=== PATIENT | male | born 1945 | race Caucasian/White ===

== ENCOUNTER → 2017-12-02 | Outpatient (CLI) | payer MEDICARE ==
[~2017-12-02] MED LIST: ASPIRIN81 MG PO; JANUVIA100 MG PO; MULTAG PO; ONGLYZA5 MG PO; VITAMIN B; VITAMIN B6100 MG PO; Z ACIDOPHILUS; Z.0.ASPIR 8181 MG PO; Z.0.CENTRUM SILVER1 PO; Z.0.CRESTOR40 MG PO; Z.0.GLIPIZIDE5 MG PO; Z.0.LOVAZA1 GM PO; Z.0.METOPROLOL SUCC2 PO; Z.0.PANTOPRAZOLE SO4 PO; Z.0.PLAVIX75 MG PO; Z.0.TRILIPIX135 MG PO; Z.0.VITAMIN C500 M1 PO; Z.1.ISOSORBIDE MONO6 PO; [UNRECOGNIZED DRUG - OTHER] PO; [UNRECOGNIZED DRUG - OTHER] PO
--- NOTE | 2017-12-02 14:12 | Diagnostic Imaging Report ---
MRI of the right shoulder without contrast. History: Shoulder pain. Decreased range of motion. Fall. Comparison: None Technique: Coronal PD FS, sagital PD FS, and axial PD and PD FS. Findings: Rotator cuff: There is rotator cuff tendinosis with a small full-thickness tear involving the anterior fibers of the supraspinatus tendon at the humeral insertion site. This is best seen on sagittal series 5 image 8 and coronal series 3 image 9 and 10. There is minimal retraction of the torn fibers and mild supraspinatus muscle atrophy. Additionally, there is infraspinatus and subscapularis tendinosis. The teres minor tendon is intact. Osseous acromion complex: There is a type II acromion with mild lateral downsloping. There is moderate degenerative arthrosis at the acromioclavicular joint with undersurface spurring and narrowing of the supraspinatus tendon outlet. There is mild subacromial/subdeltoid bursitis. Glenohumeral joint: There is degeneration and fraying of the labrum. The humeral head is well-seated in the glenoid fossa. The articular cartilage surfaces are slightly thin. Biceps tendon: There is intra-articular biceps tendinosis with fraying at the biceps anchor. Other findings: Negative for muscle innervation or osseous fracture. There is a small amount of fluid and mild synovitis in the subcoracoid space with a 2 mm loose body best seen on series 2 image 10. Impression: Rotator cuff tendinosis with small full-thickness tear involving the anterior fibers of the supraspinatus tendon at the humeral insertion site. There is minimal retraction of the torn fibers and mild supraspinatus muscle atrophy. Moderate degenerative arthrosis at the acromioclavicular joint with narrowing of the supraspinatus tendon outlet. Intra-articular biceps tendinosis with fraying of the biceps anchor. Signed by: Dr. Christophe Diamond M.D. on 12/02/2017 2:09 PM
== END ==
LOC: MRI 10:23
PROVIDERS: ATTEND Family Medicine
DX: M25.511 Pain in right shoulder (principal)

== ENCOUNTER → 2020-10-26 | Outpatient (CLI) | payer MEDICARE | LOC: MRI 12:19 | PROVIDERS: ATTEND Family Medicine | DX: S46.012A Strain of muscle(s) and tendon(s) of the rotator cuff of left shoulder, initial encounter (principal) ==

== ENCOUNTER → 2021-03-18 | Day surgery (SDC) | payer MEDICARE ==
[2021-03-14 09:31] LABS: BASOPHILS # (AUTO) 0.1 (0.0-0.1); EOSINOPHILS # (AUTO) 0.3 (0.0-0.4); EOSINOPHILS % 3.7 % (0.0-6.0); HEMATOCRIT 46.9 % (38.2-49.6); HEMOGLOBIN 15.2 g/dL (14.0-18.0); LYMPHOCYTES # (AUTO) 1.7 (1.0-3.2); LYMPHOCYTES % 21.3 % (18.0-39.1); MEAN CORPUSCULAR HEMOGLOBIN 30.4 pg (28-32); MEAN CORPUSCULAR HGB CONC 32.4 g/dL (31-35); MEAN CORPUSCULAR VOLUME 93.8 fL (81-99); MONOCYTES # (AUTO) 0.6 (0.2-0.8); MONOCYTES % 8.3 % (4.4-11.3); NEUTROPHILS # (AUTO) 5.1 (2.1-6.9); NEUTROPHILS % 65.2 % (38.7-80.0); PLATELET COUNT 156 x10e3/uL (140-360); RED CELL DISTRIBUTION WIDTH 13.6 % (11.7-14.4)
[2021-03-14 09:51] LABS: ALBUMIN 3.8 g/dL (3.5-5.0); ALBUMIN/GLOBULIN RATIO 1.2 (0.8-2.0); CALCIUM 9.2 mg/dL (8.4-10.2); CREATININE, SERUM 1.05 mg/dL (0.72-1.25)
[~2021-03-18] MED LIST changes: +BUPIVACAINE 0.25% 30ML SDV ONE; +CENTRUM SILVER1 EAC3 PO; +FENTANYL CITRATE/PF 100MCG/2 ML INJ ONE; +FLOMAX0.4 MG PO; +JARDIANCE25 MG PO; +LIDOCAINE 2%/ EPINEPHRINE 20ML MDV ONE; +MIDAZOLAM HCL 2 MG/2 ML VIAL ONE; +OMEGA 3 1,0001 EACH PO; +PRESERVISION A1 EAC3 PO
[2021-03-18 11:00] VITALS: BP 109/70
== END | disposition home or self-care (01) ==
LOC: OR 06:22
PROVIDERS: ATTEND Surgery
DX: T85.618A Breakdown (mechanical) of other specified internal prosthetic devices, implants and grafts, initial encounter (principal); C18.9 Malignant neoplasm of colon, unspecified; E11.9 Type 2 diabetes mellitus without complications; I10 Essential (primary) hypertension; I25.10 Atherosclerotic heart disease of native coronary artery without angina pectoris; R00.1 Bradycardia, unspecified; I45.10 Unspecified right bundle-branch block; Y83.8 Other surgical procedures as the cause of abnormal reaction of the patient, or of later complication, without mention of misadventure at the time of the procedure; Z01.810 Encounter for preprocedural cardiovascular examination; Z01.812 Encounter for preprocedural laboratory examination; Z01.818 Encounter for other preprocedural examination; Z20.822 Contact with and (suspected) exposure to COVID-19; Z79.84 Long term (current) use of oral hypoglycemic drugs; Z79.82 Long term (current) use of aspirin; Z79.899 Other long term (current) drug therapy; Z98.61 Coronary angioplasty status
CPT/HCPCS: 36415 ×2; 36590; 71046; 80053; 82948; 85025; 88300; 93005; J2001; J2250; J3010; U0002

== ENCOUNTER → 2022-01-08 | Day surgery (SDC) | payer MEDICARE ==
[2021-12-23 10:52] LABS: BASOPHILS # (AUTO) 0.1 (0.0-0.1); BASOPHILS % 0.7 % (0.0-1.0); EOSINOPHILS # (AUTO) 0.1 (0.0-0.4); EOSINOPHILS % 1.6 % (0.0-6.0); HEMATOCRIT 50.2 % (38.2-49.6); HEMOGLOBIN 16.3 g/dL (14.0-18.0); LYMPHOCYTES # (AUTO) 1.8 (1.0-3.2); LYMPHOCYTES % 21.4 % (18.0-39.1); MEAN CORPUSCULAR HEMOGLOBIN 31.2 pg (28-32); MEAN CORPUSCULAR HGB CONC 32.5 g/dL (31-35); MONOCYTES # (AUTO) 0.6 (0.2-0.8); MONOCYTES % 7.7 % (4.4-11.3); NEUTROPHILS # (AUTO) 5.6 (2.1-6.9); NEUTROPHILS % 68.2 % (38.7-80.0); PLATELET COUNT 140 x10e3/uL (140-360); RED BLOOD COUNT 5.23 x10e6/uL (4.3-5.7); RED CELL DISTRIBUTION WIDTH 12.5 % (11.7-14.4)
[~2022-01-08] MED LIST changes: +ALIGN4 MG PO; -BUPIVACAINE 0.25% 30ML SDV ONE; +CBD GUMMIES PO; -FENTANYL CITRATE/PF 100MCG/2 ML INJ ONE; +FISH OIL 1,0001 EAC7 PO; +GLIMEPIRIDE2 MG PO; +HYOSCYAMINE SULFATE 0.5 MG/ML INJ ONE; -LIDOCAINE 2%/ EPINEPHRINE 20ML MDV ONE; +LIDOCAINE HCL 2% LOCAL INJ 5 ML SDV VIAL INJ ONE; -MIDAZOLAM HCL 2 MG/2 ML VIAL ONE; +PROPOFOL IV EMULSION 10 MG/ML 20 ML VIAL ONE
[2022-01-08 14:33] VITALS: BP 115/77
== END | disposition home or self-care (01) ==
LOC: OR 09:55
PROVIDERS: ATTEND Internal Medicine Gastroenterology
DX: K59.09 Other constipation (principal); Z85.038 Personal history of other malignant neoplasm of large intestine; D12.3 Benign neoplasm of transverse colon; D12.5 Benign neoplasm of sigmoid colon; K31.7 Polyp of stomach and duodenum; K29.50 Unspecified chronic gastritis without bleeding; K20.90 Esophagitis, unspecified without bleeding; K44.9 Diaphragmatic hernia without obstruction or gangrene; K31.89 Other diseases of stomach and duodenum; K21.9 Gastro-esophageal reflux disease without esophagitis; Z98.0 Intestinal bypass and anastomosis status; K57.30 Diverticulosis of large intestine without perforation or abscess without bleeding; K64.8 Other hemorrhoids; Z71.3 Dietary counseling and surveillance; G47.33 Obstructive sleep apnea (adult) (pediatric); I25.10 Atherosclerotic heart disease of native coronary artery without angina pectoris; I10 Essential (primary) hypertension; E11.9 Type 2 diabetes mellitus without complications; E78.5 Hyperlipidemia, unspecified; R00.1 Bradycardia, unspecified; Z88.7 Allergy status to serum and vaccine; Z01.810 Encounter for preprocedural cardiovascular examination; Z01.812 Encounter for preprocedural laboratory examination; Z79.84 Long term (current) use of oral hypoglycemic drugs; Z79.82 Long term (current) use of aspirin; Z79.899 Other long term (current) drug therapy; Z68.30 Body mass index [BMI] 30.0-30.9, adult; Z87.891 Personal history of nicotine dependence
CPT/HCPCS: 36415 ×2; 43239; 45385; 82948; 85025; 93005; C9113; J1980; J2001; J2704; 45378

== ENCOUNTER → 2024-04-14 | Outpatient (REF) | payer MEDICARE ==
[~2024-04-14] MED LIST changes: +ACTOS15 MG PO; +FAMOTIDINE20 MG PO; -HYOSCYAMINE SULFATE 0.5 MG/ML INJ ONE; +KETOROLAC TROME10 MG PO; -LIDOCAINE HCL 2% LOCAL INJ 5 ML SDV VIAL INJ ONE; -PROPOFOL IV EMULSION 10 MG/ML 20 ML VIAL ONE
== END ==
LOC: MRI 09:25
PROVIDERS: ATTEND Family Medicine
DX: M25.562 Pain in left knee (principal); S83.242A Other tear of medial meniscus, current injury, left knee, initial encounter; M23.304 Other meniscus derangements, unspecified medial meniscus, left knee